=== PATIENT | female | born 1970 | race Caucasian/White ===

== ENCOUNTER 2020-09-23 00:50 | Day surgery (SDC) | payer OTHER, SELFPAY ==
[2020-09-07 10:15] VITALS: BMI 23.8
[2020-09-23 09:22] VITALS: BP 128/77; PULSE 68; RESP 16; TEMP 36.3; O2SAT 100
[2020-09-23] MEDS: LACTATED RINGERS 1,000 ML 150 ML IV CONT (09:27)
--- NOTE | 2020-09-23 10:08 | PM.HPGS ---
History of Present Illness History of Present Illness Consent: Risks, benefits, and alternatives have been discussed and questions answered. Patient agrees to proceed with procedure. Chief complaint: neoplasm screening, abd distension Narrative: Yanet Pineda is a 50 year old female here for egd and colonoscopy. She is originally from [place] and says that her father was diagnosed with autoimmune gastritis years ago. She has Lalo thyroid, also low B12 further work up showed high titer of parietal cell ba (1:320- normal <1:20) with negative IF blocking antibody. She is taking SL B12 and already on gluten free diet. Her last colonoscopy 15 years ago. Review of Systems Constitutional: Constitutional: Denies headache(s) and Denies weakness Eyes: Eyes: Denies blurry vision ENT: Reports Normal hearing present, Denies headache(s) and Denies neck pain Cardiovascular: Cardiovascular: Denies chest pain and Denies dyspnea Respiratory: Respiratory: Denies dyspnea Gastrointestinal: Gastrointestinal: Reports no additional gastrointestinal complaints Genitourinary: Genitourinary: Denies dysuria Musculoskeletal: Musculoskeletal: Denies neck pain Integumentary/Breasts: Skin/Breast: Denies dry skin Neurologic: Reports Normal hearing present, Denies headache(s) and Denies weakness Psychiatric: Psychiatric: Denies anxiety Endocrine: Endocrine: Denies change in body appearance Hematologic/Lymphatic: Hematologic/Lymphatic: Denies easy bleeding Allergic/Immunologic: Allergic/Immunologic: Denies urticaria PMFSH Past Medical History Medical History (Updated 07/16/20 @ 09:01 by Dnenis Nguyen MD) B12 deficiency Bloating Colon cancer screening Lalo's thyroiditis Family History Family History Mother Hypertension Patient's mother is Family history of primary malignant neoplasm of liver Father Family history of Alzheimer's disease Cerebrovascular accident Other Family history of arthritis Family history of malignant neoplasm Social History Social History Social History: Smoking packs per day: 1 Smoking cigarettes per day: 20.0 Years smoked: 12 Smoking pack-years: 12.00 Smoking status: Former smoker Tobacco type: cigarettes Second hand tobacco smoke exposure: No Smoking end date: 03/27/98 Alcohol intake: never Alcohol use details: rarely Substance use: never Substance use type: does not use Living arrangements: with family Gender identity (if verbalized by the patient): Female Spiritual care concerns: No Meds Home Medications and Allergies Home Medications Medication Instructions Recorded Confirmed Type levothyroxine 75 mcg tablet 75 mcg PO DAILY 05/17/19 09/23/20 History cholecalciferol (vitamin D3) 250 mcg PO DAILY 09/07/20 09/23/20 History magnesium 400 mg PO HS 09/07/20 09/23/20 History mecobalamin (vitamin B12) 5,000 mcg PO DAILY 09/07/20 09/23/20 History omega-3 fatty acids [Fish Oil] 1,000 mg PO DAILY 09/07/20 09/23/20 History Allergies Allergy/AdvReac Type Severity Reaction Status Date / Time No Known Allergies Allergy Verified 09/23/20 09:20 Vital Signs Vital Signs - 24 hr 09/23/20 09:22 Temperature 97.4 F L Pulse Rate 68 Respiratory Rate 16 Blood Pressure 128/77 Pulse Oximetry 100 Exam Const: General: comfortable and no acute distress HENMT: General nose exam: Normal nares present Eyes: General: appearance normal, both eyes and all related structures Neck: Neck: no JVD Resp: Auscultation: clear to auscultation bilaterally Cardio: Rate: regular rate Rhythm: regular rhythm GI: Inspection: non-distended GI Palp: Yes Soft to palpation Skin: General skin exam: normal color Neuro: General: gait normal Speech: normal speech Extrem: General: cordelia
--- NOTE | 2020-09-23 10:08 | WPDANESEPPF ---
Anes - Initial Pre Proc Eval Procedure: Operation Date: 09/23/20 10:15 Proposed Procedures p Esophagogastroduodenoscopy & Screening Colonoscopy - Dennis Nguyen MD Date/Time: 09/23/20 10:08 Surgeon: Dennis Nguyen MD Pre Op Diagnosis: neoplasm screening, abd distension Patient Data Age: 50 Gender: F Height: 1.75 m Weight: 74 kg Last Vital Signs Temp 97.4 F L 09/23/20 09:22 Pulse 68 09/23/20 09:22 Resp 16 09/23/20 09:22 BP 128/77 09/23/20 09:22 Pulse Ox 100 09/23/20 09:22 Allergies Allergy/AdvReac Type Severity Reaction Status Date / Time No Known Allergies Allergy Verified 09/23/20 09:20 Home Medications Medication Instructions Recorded Confirmed Type levothyroxine 75 mcg tablet 75 mcg PO DAILY 05/17/19 09/23/20 History cholecalciferol (vitamin D3) 250 mcg PO DAILY 09/07/20 09/23/20 History magnesium 400 mg PO HS 09/07/20 09/23/20 History mecobalamin (vitamin B12) 5,000 mcg PO DAILY 09/07/20 09/23/20 History omega-3 fatty acids [Fish Oil] 1,000 mg PO DAILY 09/07/20 09/23/20 History Patient hx anesthesia problems: none Family hx anesthesia problems: none PMFSH Past Medical History Medical History (Updated 07/16/20 @ 09:01 by Dennis Nguyen MD) B12 deficiency Bloating Colon cancer screening Lalo's thyroiditis Family History Family History Mother Hypertension Patient's mother is Family history of primary malignant neoplasm of liver Father Family history of Alzheimer's disease Cerebrovascular accident Other Family history of arthritis Family history of malignant neoplasm Social History Social History Social History: Smoking packs per day: 1 Smoking cigarettes per day: 20.0 Years smoked: 12 Smoking pack-years: 12.00 Smoking status: Former smoker Tobacco type: cigarettes Second hand tobacco smoke exposure: No Smoking end date: 03/27/98 Alcohol intake: never Alcohol use details: rarely Substance use: never Substance use type: does not use Living arrangements: with family Gender identity (if verbalized by the patient): Female Spiritual care concerns: No Anes - Eval Final PreProcedure Day of Procedure 09/23/20 10:08 Patient weight: normal Heart: regular rate and rhythm Lungs: clear to auscultation Airway: Mallampati scale class II Neurological: alert and oriented Last oral intake: >/= 8 hours ASA classification: II Emergent: no Anesthetic plan: proceed Anesthesia type and monitoring: general GIVS and standard monitoring Informed Consent: The patient's anesthetic plan and its attendant risks and benefits were discussed with the patient/family/POA. Questions were solicited and answers provided to the satisfaction of the patient/family/POA.
[2020-09-23 10:51] VITALS: BP 119/93; PULSE 66; RESP 19; O2SAT 100
[2020-09-23 11:01] VITALS: BP 133/80; PULSE 61; RESP 18; O2SAT 100
[2020-09-23 11:11] VITALS: BP 136/84; PULSE 55; RESP 18; O2SAT 100
== END 2020-09-23 11:23 | disposition home or self-care (01) ==
PROVIDERS: PCP Family Medicine; Visit Provider Internal Medicine Gastroenterology
PROC: 0DJ08ZZ Inspection of Upper Intestinal Tract, Via Natural or Artificial Opening Endoscopic (ICD-10-PCS; CPT 43235; principal; 2020-09-23 10:15)
DX: Z12.11 Encounter for screening for malignant neoplasm of colon (principal); K63.5 Polyp of colon; K64.8 Other hemorrhoids; R14.0 Abdominal distension (gaseous); E06.3 Autoimmune thyroiditis; E53.8 Deficiency of other specified B group vitamins; Z87.891 Personal history of nicotine dependence
CPT/HCPCS: 45380; 43239; 87070; 87075; 87077; 87205; 88305; J2704; J7120

== ENCOUNTER → 2022-01-12 13:55 | Outpatient (CLI) | payer OTHER, SELFPAY ==
--- NOTE | ~2022-01-12 | MM_ITS ---
EXAMINATION: MM screening arthur BI w chyna HISTORY: Screening TECHNIQUE: Craniocaudal and mediolateral oblique 3-D tomosynthesis images were obtained and synthetic 2-D images were generated. CAD analysis was submitted and interpreted. COMPARISON: Comparison to multiple prior studies sequentially, with oldest reviewed study dated 05/2012. BREAST PARENCHYMAL COMPOSITION: The breasts are heterogeneously dense, which may obscure small masses . FINDINGS: There is no evidence of suspicious mass, calcification, or architectural distortion to sugg est malignancy in either breast. There has been no suspicious interval change. IMPRESSION: 1. No mammographic evidence of malignancy. 2. Recommend routine screening mammography in one year. BI-RADS Category 1: Negative Reviewed, dictated and finalized at location A.
== END ==
PROVIDERS: PCP Nurse Practitioner Obstetrics & Gynecology; Visit Provider Obstetrics & Gynecology
DX: Z12.31 Encounter for screening mammogram for malignant neoplasm of breast (principal)
CPT/HCPCS: 77063; 77067

== ENCOUNTER 2022-03-18 12:37 | Outpatient (CLI) | payer OTHER, SELFPAY ==
--- NOTE | ~2022-03-18 | US_ITS ---
US breast LT complete INDICATION: Palpable left breast lump TECHNIQUE: Dedicated complete left breast ultrasound including all 4 quadrants in the subareolar loca tion COMPARISON: Mammogram dated 01/12/2022 FINDINGS: The left breast is composed of normal heterogeneous echotexture without focal solid or cyst ic mass. IMPRESSION: 1: Normal left breast ultrasound. Recommend correlation with diagnostic left mammogram. BI-RADS CATEGORY 0 - INCOMPLETE STUDY, NEED ADDITIONAL IMAGING EVALUATION. Reviewed, dictated and finalized at location A. 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 Recommend correlation with diagnostic left ma mmogram. BI-RADS CATEGORY 0 - INCOMPLETE STUDY, NEED ADDITIONAL IMAGING EVALUATION.
== END 2022-03-18 12:38 | disposition home or self-care (01) ==
PROVIDERS: PCP Family Medicine; Visit Provider Nurse Practitioner Obstetrics & Gynecology
DX: N63.20 Unspecified lump in the left breast, unspecified quadrant (principal); R92.8 Other abnormal and inconclusive findings on diagnostic imaging of breast
CPT/HCPCS: 76641

== ENCOUNTER → 2022-04-08 08:36 | Outpatient (CLI) | payer OTHER, SELFPAY ==
--- NOTE | ~2022-04-08 | MM_ITS ---
EXAMINATION: MM diagnostic arthur LT w chyna HISTORY: Palpable left breast lump felt by physician. Recent ultrasound examination on 03/18/2022 is normal. TECHNIQUE: Additional 3-D tomosynthesis images of the left breast were performed and synthetic 2-D im ages were generated. CAD analysis was submitted and interpreted. COMPARISON: Comparison to multiple prior studies sequentially, with oldest reviewed study dated 05/2012. BREAST PARENCHYMAL COMPOSITION: The breasts are heterogeneously dense, which may obscure small masses FINDINGS: The left breast is stable. No suspicious masses, calcifications or architectural distortion are identified in the left breast to suggest malignancy. No significant interval change. IMPRESSION: 1. No mammographic evidence for malignancy in the left breast. 2. Routine yearly screening mammogram and regular clinical breast examination are recommended. BI-RADS Category 1: Negative Reviewed, dictated and finalized at location A. 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 No mammographic evidence for malignancy in the left breast. 2. Routine yearly screening mammogram and regular clinical breast examination a re recommended. BI-RADS Category 1: Negative
== END ==
PROVIDERS: PCP Family Medicine; Visit Provider Nurse Practitioner Obstetrics & Gynecology
DX: N63.20 Unspecified lump in the left breast, unspecified quadrant (principal); N64.4 Mastodynia
CPT/HCPCS: 77061; 77065; G0279

== ENCOUNTER 2023-11-14 14:58 | Outpatient (CLI) | payer OTHER, SELFPAY ==
--- NOTE | ~2023-11-14 | MM_ITS ---
EXAMINATION: MM screening arthur BI w chyna HISTORY: Screening TECHNIQUE: Craniocaudal and mediolateral oblique 3-D tomosynthesis images were obtained and synthetic 2-D images were generated. CAD analysis was submitted and interpreted. COMPARISON: Comparison to multiple prior studies sequentially, with oldest reviewed study dated 02/24 BREAST PARENCHYMAL COMPOSITION: There are scattered areas of fibroglandular density. FINDINGS: There is no evidence of suspicious mass, calcification, or architectural distortion to sugg est malignancy in either breast. There has been no suspicious interval change. IMPRESSION: 1. No mammographic evidence of malignancy. 2. Recommend routine screening mammography in one year. BI-RADS Category 1: Negative Reviewed, dictated and finalized at location B.
== END 2023-11-14 14:59 ==
PROVIDERS: PCP Family Medicine; Visit Provider Nurse Practitioner Obstetrics & Gynecology
DX: Z12.31 Encounter for screening mammogram for malignant neoplasm of breast (principal)
CPT/HCPCS: 77063; 77067

== ENCOUNTER 2024-11-15 10:48 | Outpatient (CLI) | payer OTHER, SELFPAY ==
--- NOTE | ~2024-11-15 | MM_ITS ---
EXAMINATION: [facility]yna HISTORY: Screening mammogram TECHNIQUE: Craniocaudal and mediolateral oblique 3-D tomosynthesis images were obtained and synthetic 2-D images were generated. CAD analysis was submitted and interpreted. COMPARISON: 11/14/2023, 04/08/2022, 01/12/2022 BREAST PARENCHYMAL COMPOSITION:Dense: The breasts are extremely dense, which lowers the sensitivity of mammography. FINDINGS: Asymmetry at the inner left breast. No suspicious abnormality in the right breast. No suspicious macrocalcifications. IMPRESSION: Inner left breast asymmetry. Spot compression views and possibly ultrasound are recommended for further evaluation. BI-RADS Category 0: Incomplete: Needs additional imaging evaluation. Reviewed, dictated and finalized at location .
== END 2024-11-15 10:49 | disposition home or self-care (01) ==
LOC: MICIMG 10:50
PROVIDERS: PCP Student in an Organized Health Care Education/Training Program; Visit Provider Student in an Organized Health Care Education/Training Program
DX: Z12.31 Encounter for screening mammogram for malignant neoplasm of breast (principal); R92.8 Other abnormal and inconclusive findings on diagnostic imaging of breast
CPT/HCPCS: 77063; 77067

== ENCOUNTER 2024-11-29 08:59 | Outpatient (CLI) | payer OTHER, SELFPAY ==
--- NOTE | ~2024-11-29 | MMUS_ITS ---
EXAMINATION: US breast LT limited, MM diagnostic arthur LT w chyna HISTORY: Increased mammogram. Left breast asymmetry TECHNIQUE: [Additional images of the [[left breast]] were performed using full field digital mammography. 3-D tomosynthesis were also obtained and synthetic 2- D images were generated. CAD analysis was submitted and interpreted. High resolution [left breast ultrasound was performed of the medial left breast from the 6 to 12:00 position.] ] COMPARISON: Mammograms from 11/15/2024, 11/14/2023 and 04/08/2022 BREAST PARENCHYMAL COMPOSITION: The breasts are extremely dense, which lowers the sensitivity of mammography. FINDINGS: MAMMOGRAPHIC FINDINGS: Redemonstration of asymmetry in the inner left breast, posterior depth, seen in the left CC projection. No convincing sonographic correlate. The finding is probably benign. ULTRASOUND: There is a 5 x 4 x 4 mm benign cyst in the left breast the 10:00 position 3 cm from nipple. No other cystic or solid mass identified. IMPRESSION/RECOMMENDATION: 1. Probably benign finding in the left breast. A diagnostic left breast mammogram and a diagnostic left breast ultrasound in 6 months is recommended. BIRADS 3-Probably benign Reviewed, dictated and finalized at location Q. IMPRESSION/RECOMMENDATION: 1. Probably benign finding in the left breast. A diagnostic left breast mammogr am and a diagnostic left breast ultrasound in 6 months is recommended. BIRADS 3-Probably benign IMPRESSION/RECOMMENDATION: 1. Probably benign finding in the left breast. A diagnostic left breast mammogr am and a diagnostic left breast ultrasound in 6 months is recommended. BIRADS 3-Probably benign
--- OUTSIDE RECORDS SUMMARY | 2024-11-29 09:05 | XMS_ITS | Clinical Summary ---
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 Gender Identity Not on file Sexual Orientation Not on file Plan of Treatment Upcoming Encounters Date Type Department Care Team (Late st Contact Info) Description 01/09/2025 1:00 PM CDT Office Visit [facility] - [place] [address] [place] [id number] Anitha White MD [address] [place] [id number] Health Maintenance Due Date Last Done Comments Cervical Cancer Screening Pa p Smear (Age 30 to 64) Every 3 Years 1968 Colorectal Cancer Screening Colonoscopy (10 Years) 1968 Annual Physical 1971 Hepatitis C 1986 DTaP, Tdap and Td Vaccines ( 1 - Tdap) 1987 Hepatitis B Vaccines (1 of 3 - 19+ 3-dose series) 1987 Cervical Cancer Screening Pa p with HPV Testing (Age 30 to 64) Every 5 Years 1998 Cervical Cancer Screening with HPV 1998 Mammogram Screening 2008 Pneumococcal Vaccine: 50+ Ye ars (1 of 1 - PCV) 2018 Zoster Vaccines (1 of 2) 2018 COVID-19 Vaccine ( - 2023-2 5 season) 2024 Meningococcal B Vaccine Aged Out No l onger eligible based on patient's age to complete this topic Meningococcal Vaccine Aged Out No amber marietta eligible based on patient's age to complete this topic RSV Immunizations Under 20 Months Aged Out No longer eligible based on patient's age to complete this topic Insurance [employer]
--- OUTSIDE RECORDS SUMMARY | 2024-11-29 09:05 | XMS_ITS | Clinical Summary ---
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 Name Role Phone Bradley Mccoy Primary Care Provider + Allergies No known active allergies Medications cholecalciferol , vitamin D3, (VITAMIN D3 ORAL) Take by mouth Taking occasionally Active UNABLE TO FIND - ENTER DRUG NAME IN NOTES TO PHARMACY Med Name:Zinzino Balance fish oil 2 tsp at bedtime Active ZINC ACETATE ORAL Take by mouth Taking occasionally Active MAGNESIUM MALATE, BULK, MISC Active cyanocobalamin (Vitamin B-12) 1,000 mcg/mL injection 2 Active BD Luer-Andrés Syringe 3 mL 25 x 5/8 syringe as directed 2 Active UNABLE TO FIND Take 2 each by mouth daily Med Name: Extreme Hair therapy 1 tab in am and 1 tab in pm Active testosterone micronized, bulk, 100 % powder 2 3 Active progesterone (PROMETRIUM) 200 mg capsule Take 40 mg by mouth daily Active thyroid (ARMOUR THYROID) 15 mg tablet Take 1 tablet (15 mg total) by mouth daily 90 tablet 3 4 Active rosuvastatin (CRESTOR) 10 mg tablet Take 1 tablet every day by oral route in the morning for 30 days, for high chol. 4 Active valACYclovir (VALTREX) 500 mg tablet Take 1 tablet (500 mg total) by mouth 2 (two) times a day 5 Active azithromycin (ZITHROMAX) 250 mg tabletIndicatio ns:Lower respiratory infection (e.g., bronchitis, pneumonia, pneumonitis, pulmonitis) Take 2 tablets the first day, then 1 tablet daily for 4 days. 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 Other specified hypothyroidism 02/23/2019 Non-scarring hair loss 02/23/2019 Vitamin D deficiency 02/23/2019 Nontoxic single thyroid nodule 02/23/2019 Abnormal weight gain 02/23/2019 Family history of diabetes mellitus 02/23/2019 Lalo's thyroiditis 02/12/2019 Fatigue 02/12/2019 Herniation of intervertebral disc 02/12/2019 Urinary tract infectious disease 10/11/2018 Overview (01/21/2024): Urinary tract infection, site not specified;Recorded Elsewhere: No Location: [facility] Source: EHR Chronic: N Practice ID: [id number] Billable Time: 11:15:00 AM Bleeding 04/10/2017 Overview (01/21/2024): Abnormal uterine and vaginal bleeding, unspecified;Recorded Elsewhere: No Location: [facility] Source: EHR Chronic: N Practice ID: [id number] Billable Time: 08:15:00 AM Polyp of corpus uteri 07/20/2010 Overview (01/21/2024): Polyp Endometrial Uterus;Practice ID: [id number] Encounters Date Type Department Care Team Description 10/28/2024 Orders Only [facility] Medicine Endocrinology Metabolism and Lipid [address] [place] [address] [place] [address] Faby Limon, RMMariam 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) from Last 3 Months Surgical History Surgery Date Site/Laterality Comments ANKLE SURGERY 03/27/2014 - 03/26/2015 Left DILATION AND CURETTAGE OF UTERUS 03/27/2002 - 03/26/2003 ORAL SURGERY 03/27/2018 - 03/26/2019 bone graft, implant OTHER SURGICAL HISTORY 10/26/2019 - 11/25/2019 dental implants placed Medical History Medical History Date Comments Hypothyroidism Hyperthyroidism Sciatica Family History Medical History Relation Name Comments CVA Father Dementia Father Hypertension Father Cholangiocarcinoma Mother Hypertension Mother HYPOCALCEMIA Sister Migraines Sister Relation Name Status Comments Father Mother Sister Alive Social History Tobacco Use Types Packs/Day Years Used Date Smoking Tobacco: Former Passive Smoke Exposure: Never Smokeless Tobacco: Never Tobacco Cessation:Counseling Given: Not Answered Comments Unknown Sex and Gender Information Value Date Recorded Sex Assigned at Not on file Legal Sex 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 Gender Identity Female 05/26/2020 1:52 PM CERTIFIED MEETING PROFESSIONAL Sexual Orientation Straight 05/26/2020 1: 52 PM CERTIFIED MEETING PROFESSIONAL Obstetrics History Last Filed Vital Signs Vital Sign Reading Time Taken Comments Blood Pressure 124/86 08/09/2024 6:52 PM CDT Pulse 70 08/09/2024 6:52 PM CDT Temperature 37.1 C (98.7 F) 08/09/2024 6:52 PM CDT Respiratory Rate 20 08/09/2024 6:52 PM CDT Oxygen Saturation 99% 08/09/2024 6:52 PM CDT Inhaled Oxygen Concentration - - Weight 84.4 kg (186 lb) 08/09/2024 6:52 PM CDT Height 175.3 cm (5' 9) 01/22/2024 11:11 AM CDT Body Mass Index 27.47 01/22/2024 11:11 AM CDT Plan of Treatment Health Maintenance Due Date Last Done Comments Cervical Cancer Screening 1968 Colon Cancer Screening-Colonoscopy 1968 Depression Screening 1968 Hepatitis C Screening 1968 Hepatitis B Screening 1986 Regular Well Visit/Exam 18-64 1986 Zoster Vaccine (1 of 2) 2018 DTaP/Tdap/Td Vaccine (2 - Td or Tdap) 07/17/2022 07/17/2012 Breast Cancer Screening-Mammogram 04/08/2023 04/08/2022, 01/12/2022 Influenza Vaccine (#1) 2024 , 01/16/2015, 01/01/2014, Additional history exists Pneumococcal vaccine <65 Aged Out No longer eligible based on patient's age to complete this topic Insurance [employer] [facility] Care Teams Channel Process Plant Operator Relationship Specialty Start Date End Date Bradley Mccoy PA [facility] [place] [address] PCP - General Internal Medicine 01/26/24
== END 2024-11-29 09:00 | disposition home or self-care (01) ==
LOC: CHSIMG 09:00
PROVIDERS: PCP Student in an Organized Health Care Education/Training Program; Visit Provider Student in an Organized Health Care Education/Training Program
DX: N64.89 Other specified disorders of breast (principal)
CPT/HCPCS: 76642; 77061; 77065; G0279